=== PATIENT | male | born 1935 | race Caucasian/White ===

== ENCOUNTER 2016-10-18 14:00 | Inpatient (IN) | payer MEDICARE, OTHER ==
[~2016-10-18] VITALS: Ht 172.7 cm; Wt 92.1 kg
--- NOTE | ~2016-10-18 | CON ---
PATIENT'S NAME: KANA BRANCH [facility] AGE: 80 Y [address] ROOM: [place] [address] LOCATION: [facility] [place] ADMIT DATE: 10/23/2016 Consultation DISCHARGE DATE: FAMILY PHYSICIAN: TU PRICE ATTENDING PHYSICIAN: MORRIS VELEZ DATE OF CONSULTATION: 10/23/2016 REFERRING PHYSICIAN: Morris Velez MD REASON FOR CONSULTATION: Medical management. CONSULTING PHYSICIAN: Raleigh Napoles MD. HISTORY OF PRESENT ILLNESS: The patient is an 80-year-old male, unfortunately not a very good historian. He has undergone a radical neck dissection for a lump earlier today. He is now resting comfortably on the medical-surgical floor and a hospitalist consultation was requested. At present, he volunteers no complaints. REVIEW OF SYSTEMS: A complete 10-point review of history was conducted and is negative aside from pertinent positives mentioned above. PAST MEDICAL HISTORY: This is incomplete as the patient told me that he has no medical problems; 1. Parkinson's. 2. Diabetes type 2. 3. Essential hypertension. 4. Others are unknown. SOCIAL HISTORY: Negative for any history of ongoing toxic habits. FAMILY HISTORY: Reviewed and is noncontributory due to the patient's advanced age. CURRENT MEDICATIONS: 1. Aspirin 81. 2. Sinemet 25/100 three times a day. 3. Hydrochlorothiazide 12.5 mg daily. 4. Metformin 1000 mg twice a day with meals. 5. Potassium chloride 20 mEq daily. 6. Accupril 40 mg daily. PATIENT'S NAME: KANA BRANCH [facility] AGE: 80 Y [address] ROOM: [place] [address] LOCATION: [facility] [place] ADMIT DATE: 10/23/2016 Consultation DISCHARGE DATE: FAMILY PHYSICIAN: TU PRICE ATTENDING PHYSICIAN: MORRIS VELEZ PHYSICAL EXAMINATION: VITAL SIGNS: Temperature is 97.5, pulse 79, respirations 16, blood pressure 112/57, saturation 94% on 2 L nasal cannula. GENERAL: He appears elderly frail male, in no acute distress. NEUROLOGICAL: Significant for pill-rolling tremor bilaterally. EYES: Show pupils are equal and reactive to light. LYMPHATIC: Shows no cervical lymphadenopathy. ENDOCRINE: Deferred. SKIN: Shows a dressed incision on the right with a DORINA drain. LUNGS: Clear to auscultation. HEART: Rate is regular. No appreciable murmurs, gallops, or rubs. ABDOMEN: Soft, nontender, nondistended. : Shows no costovertebral angle tenderness. VASCULAR: Reveals 2+ pedal pulses. MUSCULOSKELETAL: Unremarkable. PSYCHIATRIC: Reveals appropriate mood, cognition, and affect. STUDIES: No studies are available so far. IMPRESSION AND RECOMMENDATIONS: This is an 80-year-old male, postop day 0 for a parathyroidectomy. Individual problems to be addressed as follows; 1. Type 2 diabetes. At this point, the patient has been continued on his metformin, and we are getting Accu-Cheks. If we cannot get adequate blood glucose control with metformin alone, we will consider adding an additional agent. We will put him on a sliding scale. 2. Bowel regimen. The patient has been started and has been administered opioids. We will start him on a bowel regimen as well. 3. Parkinson's. His carbidopa and levodopa has been continued. 4. Essential hypertension. His blood pressure medications have been continued as well, and we will monitor his blood pressure. 5. Deep venous thrombosis prophylaxis. We will defer to Primary Service. We recommend that they be started soon, given possible malignancy. Additional management will depend on his clinical course. Thank you for allowing us to participate in the care of this gentleman. We will follow him with you. Time dedicated to this consult is 35 minutes. MD MARIA TERESA PATEL/godwin PATIENT'S NAME: KANA BRANCH [facility] AGE: 80 Y [address] ROOM: [place] [address] LOCATION: [facility] [place] ADMIT DATE: 10/23/2016 Consultation DISCHARGE DATE: FAMILY PHYSICIAN: TU PRICE ATTENDING PHYSICIAN: MORRIS VELEZ /[id number] d: 10/24/16 0336 t: 04/22/17 0605, CONSULTATION REPORT
--- NOTE | ~2016-10-18 | DS ---
PATIENT'S NAME: KANA BRANCH [facility] AGE: 80 Y [address] 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 DISCHARGE DIAGNOSIS: Right parotid mass with concern for malignancy. SECONDARY DIAGNOSES: 1. Diabetes mellitus type 2. 2. Hypertension. 3. Parkinson's. 4. Hypokalemia. PROCEDURES DURING ADMISSION: Right total parotidectomy and right modified radical neck dissection on 10/23/2016. SURGEON: Morris Han MD. REGULATORY COORDINATOR: Everardo Gonzales MD INDICATION FOR ADMISSION: The patient is an 80-year-old male with history of right parotid mass rapidly growing over the last 2 months. An FNA was concerning for malignancy and he does have a history of malignancy of the skin in the right church region. For these reasons, we elected for surgery. He was brought into the hospital on October 23, 2016, and was brought to the operating room for the above-mentioned procedures, which were performed without complication. After the surgery, he was admitted for overnight observation. Then, this was extended into a 2-day inpatient hospital stay as he required physical therapy and increased mobility on day 1. He was tolerating his p.o. diet on day 1 without difficulty. His DORINA drain was putting out about 100 mL for 24 hours on each day and was therefore kept in place. The incision was healing well without breakdown. He was increasing his mobility without difficulty. By postoperative day 2, he was deemed ready for discharge home with a DORINA drain with plan for removal on the following day and a formal followup in 2 weeks. NEW MEDICATIONS: 1. [place] 5/325 one tablet p.o. q.4 h. p.r.n. pain. 2. Senna q.h.s. 3. Docusate b.i.d. 4. Bacitracin to the incisions. PATIENT'S NAME: KANA BRANCH [facility] AGE: 80 Y [address] ROOM: [place] [address] LOCATION: [facility] [place] ADMIT DATE: 10/23/2016 Discharge Summary DISCHARGE DATE: 10/25/2016 FAMILY PHYSICIAN: ATTENDING PHYSICIAN: Morris Han MORRIS HAN MD MJ/modl /[id number] d: 10/25/16 0701 t: 10/26/16 1018, DISCHARGE SUMMARY
--- NOTE | ~2016-10-18 | OR ---
PATIENT'S NAME: KANA BRANCH [facility] AGE: 80 Y [address] ROOM: [place] [address] LOCATION: [facility] [place] ADMIT DATE: 10/23/2016 OR/Procedure Report DISCHARGE DATE: FAMILY PHYSICIAN: TU PRICE ATTENDING PHYSICIAN: MORRIS VELEZ SURGEON: Morris Velez MD SEAT JOINER: Dr. Garrick Alcala and DANY Rose. DATE OF PROCEDURE: 10/23/2016 PREOPERATIVE DIAGNOSIS: Right parotid mass with concern for malignancy. POSTOPERATIVE DIAGNOSIS: Right parotid mass with concern for malignancy. PROCEDURES: 1. Right total parotidectomy with facial nerve monitoring for 5 hours using the anion probe. 2. Right selective neck dissection, levels 1, 2, and 3. ANESTHESIA: General endotracheal. COMPLICATIONS: None. BLOOD LOSS: 300 mL. FINDINGS: Mass did not appear to be invading the facial nerve and the facial nerve did stimulate intact on all of its branches at the conclusion of the case. SPECIMENS: 1. Right parotid. 2. Right neck dissection. INDICATIONS: The patient is an 80-year-old male with a right parotid mass identified with rapid growth. An FNA was performed, as well as CT scan. The FNA was concerning for malignancy. 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 We therefore discussed surgical resection. The patient provided informed consent. DESCRIPTION OF PROCEDURE: The patient was brought from the preoperative area to the operative suite, placed on table in supine position. All pressure points were padded. Time-out was performed correctly identifying the patient and procedure. General endotracheal anesthesia was initiated. The patient was placed on a shoulder roll and the head was turned towards the left. The PATIENT'S NAME: KANA BRANCH [facility] AGE: 80 Y [address] ROOM: [place] [address] LOCATION: [facility] [place] ADMIT DATE: 10/23/2016 OR/Procedure Report DISCHARGE DATE: FAMILY PHYSICIAN: TU PRICE ATTENDING PHYSICIAN: MORRIS VELEZ facial nerve monitor was applied and calibrated. The proposed modified Griffin incision with the neck extension was marked out and injected with 1% lidocaine with epinephrine. The patient was prepped and draped in the usual sterile fashion and we began with an incision along the superior portion of the incision. A superficial flap was elevated on the subcutaneous plane overlying the mass. There was a nice plane and subcutaneous fat between the mass and the skin. We then began with dissection in the preauricular plane becoming slower and more careful with bipolar hemostasis at the tympanomastoid suture. The nerve was positively identified at its usual point and taken anteriorly on to the pes anserinus. Dissection was carried further inferiorly to expose the SCM muscle along its anterior border as well as the digastric muscle. We began with dissection of the superior portion of the frontal nerve, this was released thereafter. The marginal nerve was identified and released on its inferior border. Slow careful dissection was performed along all of the facial nerve branches, especially on the marginal branch, which was wrapped underneath the mass and somewhat flattened. This was able to be removed from the mass without cutting through the nerve; however, a portion of the branches off the marginal and buccal that entered into the mass needed to be cut for removal. After careful dissection of the entire gland, the gland was removed from the patient and sent for permanent specimen. We then proceeded with the neck dissection portion of the procedure after hemostasis was achieved with careful spot bipolar. The neck dissection was performed by removing the fascia and soft tissue envelope overlying the submandibular gland inferior to the marginal nerve, which had been extended superiorly. This dissection was taken in the level 1A, which was taken to the level of the anterior digastric upon the other side. The strap muscles were exposed and the mylohyoid was exposed. Careful hemostasis was achieved throughout. The mylohyoid was retracted anteriorly. The submandibular duct and gland were tied off and removed and the lingual nerve at the submandibular ganglion was ligated with a suture and removed. The fibrofatty envelop was then dissected carefully in a superior to inferior plane. This was taken along the posterior border deeply of the SCM muscle leaving the cervical rootlets intact. The accessory nerve was identified and left intact. The facial vessels were ligated. The dissection was completed at the level of the omohyoid muscle. There was no resection of any unnecessary nerves in this area with the exception of the greater auricular nerve, which had been extending directly into the parotid mass was removed previously. Again, careful hemostasis was achieved, the Valsalva maneuver performed. The neck thoroughly irrigated, DORINA drain inserted. The patient was then closed in a platysmal layer with Vicryl, sutures followed by xuan for the skin on the neck, and tissue glue for the skin in front of the ear. The patient was cleansed. The facial nerve monitor removed. He was returned to the care of Anesthesia, extubated, and transferred to the recovery room in stable condition. PATIENT'S NAME: KANA BRANCH [facility] AGE: 80 Y [address] ROOM: [address] [address] LOCATION: [facility] [place] ADMIT DATE: 10/23/2016 OR/Procedure Report DISCHARGE DATE: FAMILY PHYSICIAN: TU PRICE ATTENDING PHYSICIAN: MORRIS VELEZ MD KRISTEN JANG/modl /[id number] d: 10/24/16 0039 t: 10/26/16 1015, OPERATIVE SUMMARY
[2016-10-18] MEDS ORDERED: GLUCOPHAGE1000 MG PO (14:07)
[2016-10-18] MEDS ORDERED: SINEMET 25-1001 EACH PO (14:08)
[2016-10-18] MEDS ORDERED: CRESTOR10 MG PO (14:09)
[2016-10-18] MEDS ORDERED: K-TAB ER20 MEQ PO (14:10)
[2016-10-18] MEDS ORDERED: ACCUPRIL40 MG PO (14:11)
[2016-10-18] MEDS ORDERED: HYDRODIURIL25 MG PO (14:11)
[2016-10-18] MEDS ORDERED: ASPIRIN EC81 MG PO (14:36)
--- NOTE | 2016-10-23 17:44 | NUR ---
Significant Event: From PACU at 1650. Dressing to R) neck with small shadow drainage. DORINA drain intact. R) eyebrow and side of mouth slower to move than L), Dr Han aware. Denies pain. Follow up: Need to call [facility] tomorrow for Pneumonia Vaccine as patient and unsure if he has received.
--- NOTE | 2016-10-24 03:09 | NUR ---
Shift Summary: Patient has refused pain medication all shift. States his throat is tender when he swallows. Has a DORINA drain to right side of neck with 60ml bloody drainage out this shift. VS stable. On room air. Can swallow without difficulty. Voided a large amount once. Can ambulate with one assist/gait belt. Has Parkinson's tremors. Is diabetic and on AC&HS accuchecks. Has been up in recliner since 229. Refuses ice pack.
[2016-10-24 05:42] LABS: BASOPHIL % 0.2 %; EOSINOPHIL % 0.1 %; HEMATOCRIT 35.4 % (33.0-50.0); HEMOGLOBIN 11.5 g/dL (11.0-16.0); IMMATURE GRANULOCYTE % 0.4 %; LYMPHOCYTE # 0.9 K/uL (0.8-4.0); MCH 29.5 pg (27.0-34.0); MCHC 32.5 gm/dL (32.0-36.5); MCV 90.8 fl (83.0-98.0); MONOCYTE # 1.1 K/uL (0.0-1.0); MONOCYTE % 10.2 %; MPV 9.2 fl (9.4-12.4); NEUTROPHIL # (ANC) 8.7 K/uL (1.4-9.0); NEUTROPHIL % 81.1 %; NRBC % 0 /100WBC (0-0.00); PLATELET COUNT 216 K/uL (150-450); RDW-CV 14.3 % (11.9-14.6); WBC 10.7 K/uL (4.0-11.0)
[2016-10-24 05:58] LABS: ANION GAP 11.6 (10.0-19.0); BLOOD UREA NITROGEN 12 mg/dL (6-24); CALCIUM 7.6 mg/dL (8.5-10.5); CHLORIDE 108 mMol/L (96-110); CO2 25 mMol/L (22-32); CREATININE 0.9 mg/dL (0.6-1.3); ESTIMATED GFR (MDRD EQUATION) > 60; POTASSIUM 3.6 mMol/L (3.7-5.1); SODIUM 141 mMol/L (135-145)
--- NOTE | 2016-10-24 16:23 | NUR ---
Significant Event:PT. A/O AND COOPERATIVE. TOLERATING CLEAR LIQUIDS WELL. DENIES PAIN. HERE AND REMOVED DRESSING FROM NECK. INCISION D/I WITH NAFISA AND DORINA DRAIN NEAR EAR. DORINA DRAINING SEROSANGUANOUS DRAINAGE. AMBULATED IN HALLWAY X4 TODAY WITH STANDBY ASSIST AND WALKER. FAMILY HERE. Follow up:
--- NOTE | 2016-10-25 03:26 | NUR ---
Significant Event: LUHT IS ALERT AND ORIENTATED X4 AMBULATES WITH STAND BY ASSIST. CHAIR/BED ALARMS NEEDED PATIENT WILL SELF TRANSFER AT WILL. WALKED IN LAW WAYS X4 THIS SHIFT. VITAL SIGNS WNL. AFEBRILE. NO COMPLAINTS OF PAIN OR DISCOMFORT. DID GET NEW ORDER FOR TUMS PER PATIENT REQUEST. chandler DRAIN TO RIGHT SIDE OF NECK WITH 30ML BLOOD DRAINAGE. VOIDED X1. ACHS ADA DIET WILL NEED ASSISSTANCE ORDERING BREAKFAST SOFT ADA. HAS PARKINSON'S TREMORS. NECK NAFISA ARE DRY AND INTACT OPEN TO AIR. Follow up:
--- NOTE | 2016-10-25 05:08 | NUR ---
Significant Event: PATIENT RECEIVED AT 0340. PATIENT IS UP WITH STANDBY ASSIST WITH WALKER. IMPULSIVE. ALARMS IN PLACE. INCISION TO RIGHT NECK IS STAPLED WITH DORINA DRAIN. 40ML/OUT THIS SHIFT. Follow up:
[2016-10-25 05:47] LABS: ANION GAP 11.7 (10.0-19.0); BLOOD UREA NITROGEN 9 mg/dL (6-24); CALCIUM 7.8 mg/dL (8.5-10.5); CHLORIDE 104 mMol/L (96-110); CO2 27 mMol/L (22-32); CREATININE 0.7 mg/dL (0.6-1.3); ESTIMATED GFR (MDRD EQUATION) > 60; POTASSIUM 3.7 mMol/L (3.7-5.1); SODIUM 139 mMol/L (135-145)
[2016-10-25] MEDS ORDERED: POLYSPORIN15 GM TOP (07:48)
[2016-10-25] MEDS ORDERED: COLACE100 MG PO (07:49)
[2016-10-25] MEDS ORDERED: NORCO 5-325 TA1 EACH PO (07:53)
[2016-10-25] MEDS ORDERED: TUMS REGULAR ST1 TAB PO (07:54)
--- NOTE | 2016-10-25 11:07 | NUR ---
D:Orders received for patient to be dismissed. I:Dismissal instructions were prepared and reviewed with the patient and his family by the [facility] nurse using the computer technology. The following information was reviewed: diet and activity recommendations for home, incisional care for home, s/s of infection to monitor for and to report to MD if they occur, drain care for home, home medications/new prescription medications, and plans for follow up appointments with tomorrow for DORINA drain removal and then in [address] Han. Darryl teaching given to and reviewed with the patient on the following topics: Discharge Instructions: Caring for your Incision, Discharge Instructions: Caring for your DORINA, Colace, Bacitracin, [place], Tums, Preventing DVT's. R:The patient and his family verbalized understanding of teaching and denied further questions at the time. The primary nurse, Silke RICHARDSON, was going to review DORINA care one more time with pt in person prior to pt leaving. P:The patient will be dismissed later this morning. Toby RICHARDSON
--- NOTE | 2016-10-25 11:30 | NUR ---
Significant Event: Patient up and ate breakfast. Denies pain. Explained application of bacitracin to incision, and how to empty DORINA drain. Patient verbalized understanding. IV's removed prior to dismissal. Virtual nurse, Francia reviewed dismissal instructions with patient. Patient signed dismissal instructions and then was going to be taken from hospital to [facility] by family. Patient taken in a wheelchair to the front doors for dismissal by [employer].
--- NOTE | 2016-10-26 15:37 | NUR ---
Post hospitalization follow up call made to patient. He reports that he is doing well. Had appointment today to have drains removed. Reports he is compliant with the lifting restriction. No questions about his medications. Reports his hospital stay went well and he "can't think of anything they could do better".
== END 2016-10-25 11:30 | disposition disaster alternative care site (69) | DRG 134 ==
LOC: GMSU 10-23 05:45
PROVIDERS: Nurse Practitioner Family; ADMIT Otolaryngology
DX: K11.9 Disease of salivary gland, unspecified (principal); G20 Parkinson's disease; E11.9 Type 2 diabetes mellitus without complications; I10 Essential (primary) hypertension; Z85.89 Personal history of malignant neoplasm of other organs and systems; E87.6 Hypokalemia
CPT/HCPCS: C1751; J0690; J2405; J7030